=== PATIENT | male | born 1985 | race Caucasian/White ===

== ENCOUNTER 2018-01-24 10:58 | Emergency (ER) | payer OTHER ==
[~2018-01-24] VITALS: Ht 185.4 cm; Wt 93.0 kg
[2018-01-24] MEDS ORDERED: ACET325 PO (11:23)
[2018-01-24] MEDS ORDERED: IBUP400 PO (11:23)
[2018-01-24] MEDS ORDERED: IBUP600 PO (12:56)
[2018-01-24] MEDS ORDERED: CRUTCH4 XX (13:12)
== END 2018-01-24 13:25 | disposition home or self-care (01) ==
LOC: ER 10:58
DX: S93.402A Sprain of unspecified ligament of left ankle, initial encounter (principal); F17.200 Nicotine dependence, unspecified, uncomplicated; W13.8XXA Fall from, out of or through other building or structure, initial encounter
CPT/HCPCS: 29505; 73562-LT; 73610; 96374; 99283-25; J1885